=== PATIENT | female | born 1990 | race Caucasian/White ===

== ENCOUNTER 2016-09-19 09:42 | Emergency (ER) | payer OTHER ==
[~2016-09-19] VITALS: Ht 165.1 cm; Wt 126.9 kg
[~2016-09-19 09:42] MED LIST: AMITRIPTYLINE H25 MG PO; AUGMENTIN875 MG PO; BACTRIM,SEPT1 TABLET PO; BCP; BENTYL10 MG PO; CLARITIN,ALAVAR10 MG PO; DICYCLOMINE HCL10 MG PO; DILAUDID4 MG PO; DIVALPROEX SOD500 MG; FIORICET WI1 CAPSULE PO; FLEXERIL10 MG PO; FLEXERIL5 MG PO; FLOMAX0.4 MG PO; FLUOXETINE HCL20 MG PO; IMITREX25 MG PO; IMITREX50 MG PO; KEFLEX500 MG PO; LABETALOL HCL100 MG PO; LORATADINE10 M2 PO; MEDROL DOSEPAK4 MG PO; MOTRIN600 MG PO; NOHOMEMEDS; NORCO 5/3251 TABLET PO; NORCO 7.5/321 TABLET PO; PAIN RELIEVER325 MG PO; PERCOCET 5-3251 EACH PO; PERCOCET 5/31 TABLET PO; PREDNISONE50 MG PO; PROMETHAZINE HC25 M1 PO; PYRIDIUM100 MG PO; REGLAN10 MG PO; RISPERDAL0.5 MG PO; RISPERIDONE0.5 MG PO; ROXICODONE5 MG PO; TRANDATE100 MG PO; TRINESSA1 EACH PO; TYLENOL EXTRA500 MG; TYLENOL EXTRA500 MG PO; TYLENOL REGULA325 MG PO; TYLENOL WITH C1 EACH PO; VALIUM5 MG PO; VENTOLIN HFA18 GM; VIBRAMYCIN100 MG PO; ZITHROMAX Z-PA250 MG PO; ZOFRAN ODT4 MG PO; ZOFRAN ODT8 MG PO; ZOFRAN4 MG PO; ZOFRAN8 MG PO
[2016-09-19 10:39] VITALS: BP 151/120
== END 2016-09-19 10:32 | disposition home or self-care (01) ==
LOC: EME 09:42
DX: G43.909 Migraine, unspecified, not intractable, without status migrainosus (principal); F17.200 Nicotine dependence, unspecified, uncomplicated
CPT/HCPCS: 99281; 99284; J1200; J2765; J7030

== ENCOUNTER 2016-09-23 19:55 | Emergency (ER) | payer OTHER ==
[~2016-09-23] VITALS: Ht 165.1 cm; Wt 127.6 kg
[2016-09-23 20:22] VITALS: BP 174/96
== END 2016-09-23 23:30 | disposition left against medical advice (07) ==
LOC: EME 19:55
DX: G43.909 Migraine, unspecified, not intractable, without status migrainosus (principal); F17.200 Nicotine dependence, unspecified, uncomplicated
CPT/HCPCS: 81003; 99281; 99284

== ENCOUNTER 2017-03-04 20:22 | Emergency (ER) | payer OTHER ==
[~2017-03-04] VITALS: Ht 165.1 cm; Wt 128.8 kg
[2017-03-04 21:07] LABS: ADD MIUA? YES; BILIRUBIN NEGATIVE; BLOOD NEGATIVE; COLOR YELLOW ((YELLOW)); GLUCOSE (STRIP) NEGATIVE; KETONES NEGATIVE; LEUKOCYTES NEGATIVE; NITRITE NEGATIVE; PROTEIN (STRIP) NEGATIVE; SPECIFIC GRAVITY 1.017 (1.000-1.030); UROBILINOGEN 0.2 MG/DL (0.2-1.0)
[2017-03-04 21:15] LABS: BACTERIA RARE /HPF; EPITHELIAL CELLS RARE /HPF; MUCUS TRACE /LPF; RED BLOOD CELLS NONE SEEN /HPF (0-5); UCUL ADDED? NO; WHITE BLOOD CELLS 0-5 /HPF (0-5)
[2017-03-04 21:20] LABS: HEMATOCRIT 44.8 % (36.0-46.0); MCH 29.5 PG (29.0-34.0); MCHC 33.7 G/DL (30.0-36.0); MCV 87.5 FL (83-99); MEAN PLAT.VOLUME 9.7 uM^3 (9.5-12.4); PLATELET COUNT 363 K/uL (156-360); RBC DIS.WIDTH-CV 12.7 % (11.8-14.6); RBC DIS.WIDTH-SD 40.7 % (39-53); RED BLOOD COUNT 5.12 M/uL (3.80-5.20); WHITE BLOOD COUNT 11.4 K/uL (4.1-10.2)
[2017-03-04 21:25] LABS: CHLORIDE 106 mEq/L (99-109); POTASSIUM 3.8 mEq/L (3.7-5.4); SODIUM 138 mEq/L (136-147)
[2017-03-04 21:27] LABS: GLUCOSE 104 mg/dL (70-99)
[2017-03-04 21:28] LABS: ANION GAP 9 MEQ/L (2-14)
[2017-03-04 21:29] LABS: TOTAL BILIRUBIN 0.5 mg/dL (0.0-1.0)
[2017-03-04 21:30] LABS: ALKALINE PHOSPHATASE 76 IU/L (3-129)
[2017-03-04 21:31] LABS: GFR ESTIMATE (CALCULATED) > 59 mL/min/
[2017-03-04 21:32] LABS: UREA NITROGEN (BUN) 7 mg/dL (9-23)
[2017-03-04 21:47] LABS: QUANTITATIVE HCG < 4.0 MIU/ML
[2017-03-04] MEDS ORDERED: NAPROSYN500 MG PO (22:58)
[2017-03-04] MEDS ORDERED: DULOXETINE HCL30 MG PO (23:15)
[2017-03-04 23:16] VITALS: BP 148/68
== END 2017-03-04 23:18 | disposition home or self-care (01) ==
LOC: EME 20:22
DX: N80.9 Endometriosis, unspecified (principal); N83.209 Unspecified ovarian cyst, unspecified side; I10 Essential (primary) hypertension; F17.210 Nicotine dependence, cigarettes, uncomplicated; Z87.442 Personal history of urinary calculi; Z86.14 Personal history of Methicillin resistant Staphylococcus aureus infection; Z88.6 Allergy status to analgesic agent; Z88.1 Allergy status to other antibiotic agents
CPT/HCPCS: 80053; 81003; 84702; 85027; 99281; 99284

== ENCOUNTER 2017-04-11 11:14 | Emergency (ER) | payer OTHER ==
[~2017-04-11] VITALS: Ht 165.1 cm; Wt 130.9 kg
[~2017-04-11 11:14] MED LIST changes: +DULOXETINE HCL30 MG PO; +NAPROSYN500 MG PO
[2017-04-11 14:57] LABS: HEMATOCRIT 45.4 % (36.0-46.0); MCH 29.1 PG (29.0-34.0); MCHC 33.3 G/DL (30.0-36.0); MCV 87.5 FL (83-99); MEAN PLAT.VOLUME 9.8 uM^3 (9.5-12.4); PLATELET COUNT 364 K/uL (156-360); RBC DIS.WIDTH-CV 12.9 % (11.8-14.6); RBC DIS.WIDTH-SD 41.1 % (39-53); RED BLOOD COUNT 5.19 M/uL (3.80-5.20); WHITE BLOOD COUNT 11.4 K/uL (4.1-10.2)
[2017-04-11 15:09] LABS: CHLORIDE 106 mEq/L (99-109); POTASSIUM 4.1 mEq/L (3.7-5.4); SODIUM 137 mEq/L (136-147)
[2017-04-11 15:11] LABS: GLUCOSE 88 mg/dL (70-99)
[2017-04-11 15:12] LABS: ANION GAP 12 MEQ/L (2-14)
[2017-04-11 15:15] LABS: GFR ESTIMATE (CALCULATED) > 59 mL/min/; UREA NITROGEN (BUN) 6 mg/dL (9-23)
[2017-04-11 15:23] LABS: QUANTITATIVE HCG < 4.0 MIU/ML
[2017-04-11 15:30] LABS: ADD MIUA? YES; BILIRUBIN NEGATIVE; BLOOD MODERATE; COLOR YELLOW ((YELLOW)); GLUCOSE (STRIP) NEGATIVE; KETONES NEGATIVE; LEUKOCYTES NEGATIVE; NITRITE NEGATIVE; PROTEIN (STRIP) NEGATIVE; SPECIFIC GRAVITY 1.014 (1.000-1.030); UROBILINOGEN 0.2 MG/DL (0.2-1.0)
[2017-04-11 15:40] LABS: BACTERIA RARE /HPF; EPITHELIAL CELLS RARE /HPF; MUCUS TRACE /LPF; RED BLOOD CELLS 20-30 /HPF (0-5); WHITE BLOOD CELLS 0-5 /HPF (0-5)
[2017-04-11] MEDS ORDERED: NORCO 10/3251 TABLET PO (18:36)
[2017-04-11 19:02] VITALS: BP 137/101
[2017-04-13 13:20] LABS: CHLAMYDIA TRACHOMATIS NEGATIVE; NEISSERIA GONORRHOEAE NEGATIVE
== END 2017-04-11 19:03 | disposition home or self-care (01) ==
LOC: EME 11:14
PROVIDERS: Physician Assistant
DX: N94.6 Dysmenorrhea, unspecified (principal); N92.0 Excessive and frequent menstruation with regular cycle; I10 Essential (primary) hypertension; E66.01 Morbid (severe) obesity due to excess calories; Z68.42 Body mass index [BMI] 45.0-49.9, adult; Z90.49 Acquired absence of other specified parts of digestive tract; Z86.14 Personal history of Methicillin resistant Staphylococcus aureus infection; F17.200 Nicotine dependence, unspecified, uncomplicated
CPT/HCPCS: 76856; 80048; 81003; 84702; 85027; 87491; 87591; 99281; 99285; J2060; J3010; J7030

== ENCOUNTER 2017-06-07 23:48 | Emergency (ER) | payer OTHER ==
[~2017-06-07] VITALS: Ht 165.1 cm; Wt 132.5 kg
[~2017-06-07 23:48] MED LIST changes: +NORCO 10/3251 TABLET PO
[2017-06-08 00:50] LABS: INTERNAL CONTROL VALID? YES
[2017-06-08] MEDS ORDERED: PERCOCET 5/31 TABLET PO (00:53)
[2017-06-08 00:59] VITALS: BP 110/79
== END 2017-06-08 01:00 | disposition home or self-care (01) ==
LOC: EME 23:48
PROVIDERS: Emergency Medicine
DX: R10.2 Pelvic and perineal pain (principal); I10 Essential (primary) hypertension; Z87.442 Personal history of urinary calculi; Z86.14 Personal history of Methicillin resistant Staphylococcus aureus infection; F17.200 Nicotine dependence, unspecified, uncomplicated; Z88.6 Allergy status to analgesic agent; Z88.1 Allergy status to other antibiotic agents; Z88.5 Allergy status to narcotic agent; Z88.8 Allergy status to other drugs, medicaments and biological substances
CPT/HCPCS: 84703; 99281; 99284; J2765